=== PATIENT | female | born 1945 | race American Indian/Alaskan Native ===

== ENCOUNTER 2021-03-09 16:49 | Emergency (ER) | payer MEDICARE ==
--- NOTE | 2021-03-09 17:04 | Event Note ---
ED Screening Note Date of service: 03/09/21 Time: 17:03 ED Screening Note: Patient complains of left-sided chest pain that began 10 days ago, now pain is in the left side of her neck Denies shortness of breath History of diabetes and schizophrenia This initial assessment/diagnostic orders/clinical plan/treatment(s) is/are subject to change based on patients health status, clinical progression and re- assessment by fellow clinical providers in the ED. Further treatment and workup at subsequent clinical providers discretion. Patient/guardian urged not to elope from the ED as their condition may be serious if not clinically assessed and managed. Initial orders include: Labs EKG Chest x-ray
--- NOTE | 2021-03-09 17:37 | XRay Report ---
CHEST 2 VIEWS INDICATION / CLINICAL INFORMATION: Chest pain. COMPARISON: None available. FINDINGS: SUPPORT DEVICES: None. HEART / MEDIASTINUM: The heart size and pulmonary vasculature are normal. The aorta is normal in declan delon. LUNGS / PLEURA: No significant pulmonary or pleural abnormality. No pneumothorax. ADDITIONAL FINDINGS: There is mild partial eventration of the left hemidiaphragm posteromedially vers us a small Bochdalek hernia. IMPRESSION: No acute findings. Signer Name: Lew Payton MD Signed: 03/09/2021 5:33 PM Workstation Name: [id number]
[2021-03-09 17:57] LABS: Basophils # (Auto) 0.1 K/mm3 (0.0-0.1); Basophils % (Auto) 0.8 % (0.0-1.8); Eosinophils # (Auto) 0.3 K/mm3 (0.0-0.4); Eosinophils % (Auto) 3.3 % (0.0-4.3); Hematocrit 35.3 % (30.3-42.9); Hemoglobin 12.5 gm/dl (10.1-14.3); Lymphocytes # (Auto) 3.1 K/mm3 (1.2-5.4); Lymphocytes % (Auto) 32.2 % (13.4-35.0); Mean Corpuscular HGB Conc 35 % (30-34); Mean Corpuscular Volume 91 fl (79-97); Monocytes # (Auto) 0.8 K/mm3 (0.0-0.8); Monocytes % (Auto) 8.8 % (0.0-7.3); Platelet Count 272 K/mm3 (140-440); Red Blood Count 3.88 M/mm3 (3.65-5.03); Red Cell Distribution Width 13.5 % (13.2-15.2)
[2021-03-09 18:27] LABS: Alanine Aminotransferase 22 units/L (7-56); Blood Urea Nitrogen 18 mg/dL (7-17); Hemolysis Index 7
[2021-03-09 18:30] LABS: BUN/Creatinine Ratio 26
--- NOTE | 2021-03-09 21:44 | Emergency Department Report ---
ED Chest Pain HPI - General Chief Complaint: Chest Pain Stated Complaint: CHEST PAIN Time Seen by Provider: 03/09/21 17:01 Source: patient Mode of arrival: Ambulatory Limitations: No Limitations - History of Present Illness Initial Comments: This is a 75-year-old female who presents to the emergency department with 2 complaints. First, the patient says that she had some midsternal chest pain 2 days ago. She was given some type of homeopathic medication that "increases her nitric oxide" and this apparently resolved the pain. At the time she described it as feeling like it was "inside of my chest." It was associated with some shortness of breath that has also since resolved. She denies any fever, abdominal pain, back pain, nausea, lower extremity swelling, vomiting or diaphoresis. Secondly, the patient also complains of a 2 to 3-day history of some neck pain, upper back and lower shoulder pain and some pain down the left arm. The pain in the arm worsens with movement of the arm and with movement of the neck. She denies any numbness, paresthesias, weakness, restriction to range of motion, extremity swelling, skin color change. She has a past medical history of diabetes and hypertension. She has a primary care physician through [facility], Dr. Santiago. She also has a tech intern. No recent travel or sick contacts at home. - Related Data Previous Rx's Medication Instructions Recorded Last Taken Type Cyclobenzaprine HCl [Flexeril 5 MG 5 mg PO TID PRN #12 tab 03/09/21 Unknown Rx TAB] Allergies Allergy/AdvReac Type Severity Reaction Status Date / Time Penicillins Allergy Unknown Verified 03/09/21 17:05 Heart Score - HEART Score History: Slightly suspicious EKG: Normal Age: > 65 Risk factors: 1-2 risk factors Troponin: < normal limit HEART Score: 3 - EKG Read Time Time EKG Completed: 17:39 EKG Read Time: 17:43 - Critical Actions Critical Actions: 0-3 pts:0.9-1.7%risk of adverse cardiac event.Candidate for discharge ED Review of Systems ROS: Stated complaint: CHEST PAIN Other details as noted in HPI Comment: All other systems reviewed and negative Constitutional: denies: chills, fever Eyes: denies: eye pain, vision change ENT: denies: ear pain, throat pain Respiratory: shortness of breath (Resolved). denies: cough Cardiovascular: chest pain (Resolved). denies: palpitations Gastrointestinal: denies: abdominal pain, vomiting Genitourinary: denies: dysuria, discharge Musculoskeletal: arthralgia, myalgia. denies: back pain Skin: denies: rash, lesions Neurological: denies: headache, weakness, numbness, paresthesias ED Past Medical Hx - Past Medical History Previous Medical History?: Yes Hx Hypertension: Yes Hx Diabetes: Yes Hx Psychiatric Treatment: (schizophrenia) - Surgical History Past Surgical History?: Yes Additional Surgical History: hyst, appy - Medications Home Medications: Home Medications Medication Instructions Recorded Confirmed Last Taken Type Cyclobenzaprine HCl [Flexeril 5 MG 5 mg PO TID PRN #12 tab 03/09/21 Unknown Rx TAB] ED Physical Exam - General Limitations: No Limitations - Other Other exam information: GENERAL: The patient is well-developed well-nourished. HENT: Normocephalic. Atraumatic. Patient has moist mucous membranes. EYES: Extraocular motions are intact. Pupils equal reactive to light bilaterally. No nystagmus. NECK: Supple. Trachea is midline. Full range of motion. No posterior midline tenderness to palpation. No carotid bruits. CHEST/LUNGS: Clear to auscultation. There is no respiratory distress noted. HEART/CARDIOVASCULAR: Regular. There is no tachycardia. There is no murmur. ABDOMEN: Abdomen is soft, nontender. Patient has normal bowel sounds. There is no abdominal distention. SKIN: Skin is warm and dry. NEURO: The patient is awake, alert, and oriented. The patient is cooperative. The patient has no focal neurologic deficits. Normal speech. Cranial nerves II through XII grossly intact. No pronator drift or dysmetria. No facial asymmetry. MUSCULOSKELETAL: There is no reproducible tenderness to palpation of the extremities. There is no limitation range of motion. Muscle strength 5 out of 5 upper and lower extremities bilaterally. Radial pulse +2/4 and capillary refill less than 2 seconds to the affected left upper extremity. ED Course Vital Signs 03/09/21 03/09/21 16:59 22:00 Temperature 98.5 F 97.8 F Pulse Rate 80 70 Respiratory 18 18 Rate Blood Pressure 175/73 151/53 [Right] O2 Sat by Pulse 98 99 Oximetry MARQUIS score - Marquis Score Age > 65: (0) No Aspirin use within the Past 7 Days: (0) No 3 or more CAD Risk Factors: (0) No 2 or more Angina events in past 24 hrs: (1) Yes Known CAD with more than 50% Stenosis: (0) No Elevated Cardiac Markers: (0) No ST Deviation Greater than 0.5mm: (0) No MARQUIS Score: 1 ED Medical Decision Making - Lab Data Result diagrams: 03/09/21 17:25 03/09/21 17:25 Lab Results 03/09/21 03/09/21 03/09/21 Range/Units 17:25 17:25 20:34 WBC 9.6 (4.5-11.0) K/mm3 RBC 3.88 (3.65-5.03) M/mm3 Hgb 12.5 (10.1-14.3) gm/dl Hct 35.3 (30.3-42.9) % MCV 91 (79-97) fl MCH 32 (28-32) pg MCHC 35 H (30-34) % RDW 13.5 (13.2-15.2) % Plt Count 272 (140-440) K/mm3 Lymph % (Auto) 32.2 (13.4-35.0) % [place] % (Auto) 8.8 H (0.0-7.3) % Eos % (Auto) 3.3 (0.0-4.3) % Baso % (Auto) 0.8 (0.0-1.8) % Lymph # (Auto) 3.1 (1.2-5.4) K/mm3 [place] # (Auto) 0.8 (0.0-0.8) K/mm3 Eos # (Auto) 0.3 (0.0-0.4) K/mm3 Baso # (Auto) 0.1 (0.0-0.1) K/mm3 Seg Neutrophils % 54.9 (40.0-70.0) % Seg Neutrophils # 5.3 (1.8-7.7) K/mm3 Sodium 138 (137-145) mmol/L Potassium 4.1 (3.6-5.0) mmol/L Chloride 104.5 (98-107) mmol/L Carbon Dioxide 21 L (22-30) mmol/L Anion Gap 17 mmol/L BUN 18 H (7-17) mg/dL Creatinine 0.7 (0.6-1.2) mg/dL Estimated GFR > 60 ml/min BUN/Creatinine Ratio 26 % Glucose 201 H (65-100) mg/dL Calcium 9.0 (8.4-10.2) mg/dL Total Bilirubin 0.20 (0.1-1.2) mg/dL AST 25 (5-40) units/L ALT 22 (7-56) units/L Alkaline Phosphatase 77 (35-129) units/L Troponin T < 0.010 < 0.010 (0.00-0.029) ng/mL Total Protein 7.5 (6.3-8.2) g/dL Albumin 4.0 (3.9-5) g/dL Albumin/Globulin Ratio 1.1 % - EKG Data -: EKG Interpreted by Me EKG shows normal: sinus rhythm, axis (Left axis deviation), intervals, QRS complexes (LVH), ST-T waves Rate: normal - EKG Data When compared to previous EKG there are: previous EKG unavailable Interpretation: LVH - Radiology Data Radiology results: image reviewed interpreted by me: Chest x-ray does not show any acute process. There are no pleural effusions, obvious pneumonia and there is no pneumothorax. No significant cardiomegaly. - Medical Decision Making Patient had some midsternal chest pain 2 days ago that has since resolved. EKG does not have any morphology consistent with ST elevation myocardial infarction or any dysrhythmia. Chest x-ray does not show any pneumonia, pleural effusions, pneumothorax, or any acute process. Labs have been unremarkable including CBC, metabolic panel and negative troponins x2. Patient has a mild heart score of 3. She is low on the MARQUIS score. She does not have any risk factors consistent with thromboembolic disease. At the time of my examination the patient does not appear consistent with ACS. She has good outpatient follow-up with cardiology. She also complains of some pain to the neck, shoulder and left arm. The pain worsens with movements of the extremity and her neck. She is neurovascularly intact. Full muscle strength. No numbness or paresthesias. No restriction to range of motion. She has some tight trapezius muscles which could be adding to her discomfort. She is diabetic and this could be consistent with peripheral ne uropathy versus cervical radiculopathy. She already takes Celebrex as needed. She will be given a low-dose of some Flexeril and has been given outpatient referrals for an orthopedist and a neurosurgeon. She does not appear to have any life or limb threatening emergency that requires immediate intervention or a medical admission. She will return to the emergency department with any worsening of her symptoms or with any acute distress. Critical Care Time: No Critical care attestation.: If time is entered above; I have spent that time in minutes in the direct care of this critically ill patient, excluding procedure time. ED Disposition Clinical Impression: Cervical radicular pain, Muscle tension pain Chest pain Qualifiers: Chest pain type: unspecified Qualified Code(s): R07.9 - Chest pain, unspecified Hypertension Qualifiers: Hypertension type: essential hypertension Qualified Code(s): I10 - Essential (primary) hypertension Disposition: - TO HOME OR SELFCARE Is pt being admited?: No Condition: Stable Instructions: Radicular Pain, Neuropathic Pain, Nonspecific Chest Pain, Adult, Hypertension, Adult, Hypertension (ED) Additional Instructions: Please follow-up with your primary care physician in the next few days. Please follow-up with your tech intern in the next few days. Please return to the closest emergency department with any return of your chest pain. I am giving you a referral for a local orthopedic group, [facility], as well as a local neurosurgeon, Dr. Braeden Khoury, to follow-up regarding your neck and shoulder/arm pains. Take your Celebrex as needed. I am giving you a prescripti on for a low-dose muscle relaxer. You can also try a heating pad, although not directly against the skin. Please take your hypertension medications as prescribed. Try to stay away from foods that are high in salt and caffeinated products. Keep a blood pressure log. Take your diabetes medications as prescribed. Try to stay away from foods that are high in sugar, carbohydrates, starches. Keep a blood sugar log. You have been prescribed a medication that is sedating and therefore should not be taken prior to driving, working, and responsible for children and in no way should be mixed with alcohol of any quantity. Return to the emergency department with any worsening of your symptoms, new or concerning symptoms not addressed during this current emergency department visit, or with any acute distress. Prescriptions: Cyclobenzaprine HCl [Flexeril 5 MG TAB] 5 mg PO TID PRN #12 tab PRN Reason: Muscle Spasm Referrals: PCP, Your [Other] - 2-3 Days [employer], Your [Other] - 2-3 Days BRAEDEN KHOURY II, MD [Staff Physician] - 2-3 Days [facility] [Provider Group] - 2-3 Days Time of Disposition: 21:48
[2021-03-09 22:15] VITALS: BP 151/53
--- NOTE | 2021-03-10 12:08 | Electrocardiograph Report ---
[facility] Test Date: 2021-03-09 Test Time: 17:39:21 Pat Name: FADI FLORES Department: Room: Gender: F Licensed Psychologist Director: : 1945 Requested By: PRIYANKA ARREGUIN Order Number: [id number] Reading MD: Debbi Sampson Measurements Intervals [place] Rate: 64 P: 55 OK: 152 QRS: -38 QRSD: 94 T: 91 QT: 414 QTc: 428 Interpretive Statements Sinus rhythm LVH with secondary repolarization abnormality No previous ECG available for comparison Electronically Signed On 03-10-2021 12:08:28 EDT by Debbi Sampson
== END 2021-03-09 22:00 | disposition home or self-care (01) ==
LOC: ED 16:49
DX: M54.12 Radiculopathy, cervical region (principal); I10 Essential (primary) hypertension; R07.89 Other chest pain; E11.9 Type 2 diabetes mellitus without complications; F20.9 Schizophrenia, unspecified; Z79.899 Other long term (current) drug therapy; Z88.0 Allergy status to penicillin
CPT/HCPCS: 36415; 71046; 80053; 84484; 85025; 93005; 99283